=== PATIENT | female | born 1945 | race Caucasian/White ===

== ENCOUNTER 2017-10-22 15:21 | Emergency (ER) | payer MEDICARE, OTHER ==
[~2017-10-22] VITALS: Ht 160 cm; Wt 55.8 kg
[~2017-10-22 15:21] MED LIST: BISOPROLOL-HCT1 EAC1 PO; CEPHALEXIN500 MG PO; FISH OIL PO; MULTIVITAMINS1 EAC7 PO; NIACIN500 M1 PO; NORCO 5-325 TA1 EACH PO; ROBAXIN-750750 MG PO
[2017-10-22] MEDS ORDERED: KEFLEX500 MG PO (17:22)
== END 2017-10-22 18:07 | disposition home or self-care (01) ==
LOC: ED 15:21
PROC: 0HQGXZZ Repair Left Hand Skin, External Approach (ICD-10-PCS; principal; 2017-10-22)
DX: S61.412A Laceration without foreign body of left hand, initial encounter (principal); I10 Essential (primary) hypertension; F17.200 Nicotine dependence, unspecified, uncomplicated; Z88.2 Allergy status to sulfonamides; Z79.899 Other long term (current) drug therapy; W27.8XXA Contact with other nonpowered hand tool, initial encounter; Y92.89 Other specified places as the place of occurrence of the external cause
CPT/HCPCS: 12004; 99283

== ENCOUNTER 2022-03-06 10:34 | Emergency (ER) | payer MEDICARE, OTHER ==
[~2022-03-06] VITALS: Ht 160 cm; Wt 55.8 kg
[~2022-03-06 10:34] MED LIST changes: +KEFLEX500 MG PO
[2022-03-06] MEDS ORDERED: AMOXICILLIN500 MG PO (11:21)
== END 2022-03-06 11:29 | disposition home or self-care (01) ==
LOC: ED 10:34
DX: K04.7 Periapical abscess without sinus (principal); I10 Essential (primary) hypertension; F17.200 Nicotine dependence, unspecified, uncomplicated; Z88.2 Allergy status to sulfonamides; Z79.899 Other long term (current) drug therapy
CPT/HCPCS: 99282

== ENCOUNTER 2022-12-08 05:55 | Day surgery (SDC) | payer MEDICARE, OTHER ==
[2022-12-04 11:34] VITALS: BP 140/81
[~2022-12-08] VITALS: Ht 162.6 cm; Wt 54.0 kg
[~2022-12-08 05:55] MED LIST changes: +ADVAIR 500-501 EACH INH; +AMOXICILLIN500 MG PO; +CALCIUM 500-VI1 EAC4 PO; +PRAVASTATIN SOD10 MG PO
[2022-12-08 06:07] VITALS: BP 136/86
--- NOTE | 2022-12-08 08:23 | NUR ---
12/08/22 0823 Sheets,Dionna 0805 PT ARRIVED TO PACU ON 10L VIA MASK, ORAL AIRWAY IN PLACE. RESP EVEN AND UNLABORED. 0806 PT STARTS MOVING AND COUGHING, ORAL AIRWAY REMOVED AND DEEP BREATHING ENCOURAGED. PT STARTS MOANING AND REPORT ABD PAIN. PT ENCOURAGED TO PASS GAS. 0815 PASSING GAS/AIR REOPRTS PAIN 03/22. PT MORE AWAKE AND TALKING TO RN. PT DENIES NAUSEA.
[2022-12-08 08:57] VITALS: BP 104/79
--- NOTE | 2022-12-08 10:30 | OR ---
[facility] [address] [place], [place] [address] Signed DATE OF OPERATION: 12/08/2022 SURGEON: Bharati Mendez MD PREOPERATIVE DIAGNOSES: 1. Personal history of colonic polyps in 2017 at age 71. 2. Tortuous colon (rectosigmoid junction). 3. Diverticulosis. POSTOPERATIVE DIAGNOSES: 1. 4 mm polyps at mid rectum. 2. 4 mm polyps at 10 cm (rectum). 3. Angulated/tortuous rectosigmoid junction. 4. 6 mm sessile polyp at 55 cm. 5. 8 mm sessile polyp at 25 cm (snare). 6. Moderate sigmoid diverticulosis. PROCEDURE: Colonoscopy with snare polypectomy and hot biopsy. ESTIMATED BLOOD LOSS: None. INDICATIONS: Lynne is a 77-year-old female, who came to us for her initial colonoscopy back in 2017 at the age of 71. She had 4 hyperplastic polyps and 1 adenomatous polyp removed. She had a very angulated rectosigmoid junction and a somewhat narrowed sigmoid colon with diverticulosis. We asked her to follow up in 5 years for repeat colonoscopy. She was unable to come last year because of her son being ill and her family business. She has continued to smoke and is now wearing oxygen at night because of her significant COPD and hypoxemia. She is very thin and very frail as well. Consequently, we did ask for monitored anesthesia care with propofol infusion on this occasion. In the office, I had given her a pamphlet on colonoscopy. We reviewed the nature of the test. There is risk including, but not limited to gas bloating, crampy abdominal pain, bleeding, perforation requiring surgery, and missed diagnosis. With our bowel prep, she likes to use Pedialyte and works out quite well for her. She had expressed understanding and wished to proceed. PROCEDURE NOTE: Lynne was taken into our endoscopy suite and placed in the left lateral decubitus Electronically Signed By: BHARATI MENDEZ MD 12/08/22 1030 PATIENT NAME: LYNNE HSIEH OPERATIVE REPORT DATE OF : 49 REPORT #: [id number] PHYSICIAN: BHARATI MENDEZ MD PCP: TASHIA SANTIZO MD REPORT IS CONFIDENTIAL AND NOT TO BE RELEASED WITHOUT AUTHORIZATION [facility] [address] [place], [place] [address] Signed position. She was given IV propofol per our nurse valve pipe irrigator. A digital rectal exam was performed and this was unremarkable. Really no external hemorrhoids. Good sphincter tone. No masses. The adult colonoscope was introduced and advanced under direct visualization of the camera. It took a few minutes to get around the angulated sigmoid colon. After that, the camera traveled quite nicely up to the cecum. Her prep was quite good. We could easily see the appendiceal orifice and ileocecal valve. The scope was then slowly withdrawn. We took pictures throughout for photodocumentation. Most of the polyps were removed with the help of hot biopsy forceps. We did use our snare at 25 cm. She does have diverticula in the sigmoid colon. They are moderate in size, moderate in number and scattered about. Once in the rectum, we tried several times to retroflex the scope, but she is so small in stature that we did not have room to see the base of the rectum. After this, the gas was suctioned out and the colonoscope removed. Lynne tolerated the procedure quite well. RECOMMENDATIONS: Lynne will follow up in my office in 7 to 14 days to review her results. At her age and her stage is COPD, it seems unlikely she will need colonoscopy in the future. Bharati Mendez MD ALB/MODL /[id number] cc: MD Bharati Escudero MD Copies: TASHIA SANTIZO MD, ANDREW L MD ~ Electronically Signed By: BHARATI MENDEZ MD 12/08/22 1030 PATIENT NAME: LYNNE HSIEH OPERATIVE REPORT DATE OF : 49 REPORT #: [id number] PHYSICIAN: BHARATI MENDEZ MD PCP: TASHIA SANTZIO MD REPORT IS CONFIDENTIAL AND NOT TO BE RELEASED WITHOUT AUTHORIZATION
--- NOTE | 2022-12-10 16:41 | EKG ---
[facility] [address] [facility] [place] [address] Signed Normal sinus rhythm Normal ECG When compared with ECG of 04-DEC-2022 10:48, No significant change was found Confirmed by KYLE HOPSON MD ([id number]) on 12/10/2022 4:41:33 PM Electronically Signed By: KYLE HOPSON MD 12/10/22 1641 PATIENT NAME: MALIK HSIEH Electrocardiogram DATE OF : 49 PHYSICIAN: KYLE HOPSON MD REPORT #: [id number] REPORT IS CONFIDENTIAL AND NOT TO BE RELEASED WITHOUT AUTHORIZATION
--- NOTE | 2022-12-11 13:21 | PATH ---
[facility] [address] [facility] [place], [place] [address] Signed SPECIMEN(S): A MID RECTAL POLYP SPECIMEN(S): B RECTAL POLYP AT 10 CM SPECIMEN(S): C CECUM COLON POLYP SPECIMEN(S): D COLON POLYP AT 55 CM SPECIMEN(S): E COLON POLYP AT 25 CM SPECIMEN SOURCE: A. MID RECTAL POLYP B. RECTAL POLYP AT 10 CM C. CECUM COLON POLYP D. COLON POLYP AT 55 CM E. COLON POLYP AT 25 CM CLINICAL HISTORY: History of polyps, diverticulosis, tortuous colon. Postop: Colon and rectal polyps, diverticulosis. FINAL PATHOLOGIC DIAGNOSIS: A. Mid rectal polyp: - Hyperplastic polyp (three fragments). B. Rectal polyp at 10 cm: - Hyperplastic polyp (three fragments). C. Cecum colon polyp: - Tubular adenoma (one fragment). D. Colon polyp at 55 cm: - Tubular adenoma (one fragment). E. Colon polyp at 25 cm: - Hyperplastic polyp (one fragment). JVR:[id number] MICROSCOPIC EXAMINATION: Histologic sections of all submitted blocks are examined by light microscopy. These findings, together with the gross examination, support the pathologic diagnosis. GROSS DESCRIPTION: A. The specimen, labeled and designated "Leblanc, mid rectum polyp," is received in formalin and consists of three garcia soft tissue fragments, ranging from 0.1-0.2 cm. Entirely submitted in (A1). B. The specimen, labeled and designated "Leblanc, rectum polyp at 10 cm," is received in formalin and consists of three garcia soft tissue fragments, ranging PATIENT NAME: MALIK LEBLANC PATHOLOGY DATE OF : 49 REPORT #: [id number] PHYSICIAN: SUDHIR MORA PCP: TASHIA SANTIZO MD REPORT IS CONFIDENTIAL AND NOT TO BE RELEASED WITHOUT AUTHORIZATION [facility] [address] [place], [place] [address] Signed from 0.1-0.2 cm. Entirely submitted in (B1). C. The specimen, labeled and designated "Benji, cecum polyp," is received in formalin and consists of one garcia soft tissue fragment, 0.2 cm. Entirely submitted in (C1). D. The specimen, labeled and designated "Leblanc, colon polyp at 55 cm," is received in formalin and consists of one garcia soft tissue fragment, 0.2 cm. Entirely submitted in (D1). E. The specimen, labeled and designated "Leblanc, colon polyp at 25 cm," is received in formalin and consists of one garcia soft tissue fragment, 0.6 cm. Specimen is bisected and entirely submitted in (E1). JS (under the direct supervision of a pathologist) The Gross Description was prepared using a voice recognition system. The report was reviewed for accuracy; however, sound-alike word errors, addition and/or deletions may occur. If there is any question about this report, please contact Client Services. PERFORMING LABORATORY: The technical component was performed by [facility], [address] [place] [id number] (CLIA# [id number]). Professional interpretation was performed by [facility], [address] [place] [id number] (CLIA#: [id number]). Diagnostician: Irineo Bahena MD Pathologist Electronically Signed 12/11/2022 Copies: ~ PATIENT NAME: BENJIMALIK ATIF PATHOLOGY DATE OF : 49 REPORT #: [id number] PHYSICIAN: SUDHIR PATHOLOGY PCP: TASHIA SANTIZO MD REPORT IS CONFIDENTIAL AND NOT TO BE RELEASED WITHOUT AUTHORIZATION
== END 2022-12-08 09:25 | disposition home or self-care (01) ==
LOC: DS 05:55 → OPS 05:55 → DS 07:30 → OPS 07:30
PROVIDERS: ATTEND Colon & Rectal Surgery
PROC: 0DBP8ZX Excision of Rectum, Via Natural or Artificial Opening Endoscopic, Diagnostic (ICD-10-PCS; 2022-12-08)
PROC: 0DBH8ZX Excision of Cecum, Via Natural or Artificial Opening Endoscopic, Diagnostic (ICD-10-PCS; principal; 2022-12-08 07:30)
DX: Z12.11 Encounter for screening for malignant neoplasm of colon (principal); K62.1 Rectal polyp; D12.0 Benign neoplasm of cecum; D12.6 Benign neoplasm of colon, unspecified; J44.9 Chronic obstructive pulmonary disease, unspecified; I10 Essential (primary) hypertension; K63.89 Other specified diseases of intestine; K57.30 Diverticulosis of large intestine without perforation or abscess without bleeding; E78.00 Pure hypercholesterolemia, unspecified; M19.90 Unspecified osteoarthritis, unspecified site; I95.1 Orthostatic hypotension; Z88.2 Allergy status to sulfonamides; Z88.8 Allergy status to other drugs, medicaments and biological substances; Z86.010 Personal history of colon polyps
CPT/HCPCS: 93005; 93010; J2704; J7121